=== PATIENT | female | born 1995 | race Caucasian/White ===

== ENCOUNTER 2018-11-04 00:51 | Emergency (ER) | payer OTHER ==
[~2018-11-04] VITALS: Ht 152.4 cm; Wt 72.6 kg
[2018-11-04 00:56] VITALS: BP 140/80; Ht 152.4 cm; Wt 72.6 kg
== END 2018-11-04 01:19 | disposition home or self-care (01) ==
LOC: ED 00:51
DX: L03.114 Cellulitis of left upper limb (principal); W57.XXXA Bitten or stung by nonvenomous insect and other nonvenomous arthropods, initial encounter; Y93.89 Activity, other specified; Y92.89 Other specified places as the place of occurrence of the external cause; Y99.8 Other external cause status

== ENCOUNTER 2018-11-24 13:25 | Emergency (ER) | payer OTHER ==
[~2018-11-24] VITALS: Ht 152.4 cm; Wt 69.4 kg
[2018-11-24 13:28] VITALS: BP 120/73; Ht 152.4 cm; Wt 69.4 kg
== END 2018-11-24 13:43 | disposition left against medical advice (07) ==
LOC: ED 13:25
DX: Z53.21 Procedure and treatment not carried out due to patient leaving prior to being seen by health care provider (principal)

== ENCOUNTER 2018-11-25 05:40 | Emergency (ER) | payer OTHER ==
[~2018-11-25] VITALS: Ht 152.4 cm; Wt 69.9 kg
[2018-11-25 05:44] VITALS: BP 119/68; Ht 152.4 cm; Wt 69.9 kg
== END 2018-11-25 06:59 | disposition home or self-care (01) ==
LOC: ED 05:40
DX: R07.89 Other chest pain (principal); J98.01 Acute bronchospasm

== ENCOUNTER 2019-07-18 07:19 | Emergency (ER) | payer OTHER | END 2019-07-18 10:06 | disposition left against medical advice (07) | LOC: ED 07:19 | DX: Z53.21 Procedure and treatment not carried out due to patient leaving prior to being seen by health care provider (principal) ==